=== PATIENT | male | born 1965 | race Caucasian/White ===

== ENCOUNTER 2023-10-18 09:53 | Emergency (ER) | payer OTHER, SELFPAY ==
[2023-10-18 09:53] VITALS: BMI 26.4
[2023-10-18 09:57] VITALS: BP 154/84
[2023-10-18 10:04] VITALS: BP 141/93
[2023-10-18 10:43] LABS: % Basophils 0.8 % (0-2); % Eosinophils 1.9 % (0-6); % Immature Granulocytes 0.3 % (0-0.5); % Lymphocytes 34.1 % (20.5-51.1); % Monocytes 7.7 % (1.7-9.3); % Neutrophils 55.2 % (42.2-75.2); Absolute Basophils 0.1 10^3/uL (0-0.2); Absolute Eosinophils 0.1 10^3/uL (0-0.7); Absolute Lymphocytes 2.5 10^3/uL (1.2-3.4); Absolute Monocytes 0.6 10^3/uL (0.1-0.6); Absolute Neutrophils 4.1 10^3/uL (1.4-6.5); Hematocrit 46.2 % (39.0-52.0); Hemoglobin 16.1 g/dL (13.0-18.0); Mean Corp Hgb Conc. 34.8 g/dL (33.0-37.0); Mean Corpuscular Hgb 31.9 pg (27.0-31.0); Mean Corpuscular Volume 91.5 fL (80.0-94.0); Nucleated Red Blood Cells % 0 % (-); Platelet Count 268 10^3/uL (130-400); Red Blood Cell Count 5.05 10^6/uL (4.70-6.10); Red Cell Dist. Width 12.6 % (11.5-14.5); White Blood Cell Count 7.4 10^3/uL (4.8-10.8)
--- NOTE | 2023-10-18 10:50 | ED.GENMED ---
History of Present Illness
General
Chief Complaint: Abdominal Pain
Source: patient
Exam Limitations: none
Time Seen by Provider: 10/18/23 10:08
Nursing documentation reviewed up to this point in time: agreed with
Travel History
Have you had any contact with someone who has COVID-19?: No
Do you have any symptoms of coronavirus? Fever > 100 degrees, chills, cough, shortness of breath, sore throat, loss of taste or smell, muscle aches, or headache?: No
History of Present Illness
History of Present Illness:
58 yo male w no sig PMHX states he's had left sided abdominal pain past 2 weeks, slowly worsening. Has had 1-2 watery non bloody diarrheal stools daily. Last diarrhea yesterday a.m. Denies fever, n/v but has no appetite. Pain is gassy and sharp at
times, worse laying down, better standing, had trouble sleeping last night due to pain. Diarrhea not necessarily preceded by pain, has taken nothing for pain.
Past History
Past History
ED Past Medical History: None
ED Past Surgical History: None
Social History
Tobacco: Non-smoker
Alcohol: None
Personal:
Living: with family
Employment: Employed
Review of Systems
Review of Systems
Allergies reviewed?: Yes
All Other Systems: ROS reviewed and negative except as documented in HPI and ROS
Constitutional: Denies fever or chills
Respiratory: Denies trouble breathing
Cardiac: Denies chest pain
ABD/GI: Reports abdominal pain, diarrhea and anorexia; Denies nausea, vomiting, constipated, bloody stools or black stools
: Denies dysuria or difficulty voiding
Musculoskeletal: Reports no symptoms
Skin: Reports no symptoms
Neurological: Reports no symptoms
Phy Exam
Physical Exam
Physical Exam:
GENERAL: No acute distress. A&Ox3.
CONSTITUTIONAL: Afebrile.
EYES: clear, conjunctivae normal
ENMT: moist mucus membranes, Pharynx nl
RESPIRATORY: Regular respirations, nonlabored, lungs clear.
CARDIOVASCULAR: Regular rate and rhythm, no murmurs, no rubs.
GI: Soft, tender mid to left abdomen, normal BS
MUSCULOSKELETAL: Moves with ease. Well perfused.
SKIN: Warm, dry, pink
PSYCH: Normal mood and affect. Well kept, interactive and appropriate
NEUROLOGIC: Awake, alert and oriented. No focal neurological deficits
Course
Orders/Labs/Results
Orders:
Orders
10/18/23 10:32
Complete Blood Count/With Diff Urgent
Comprehensive Metabolic Panel Urgent
Lipase Urgent
10/18/23 10:50
0.9% Sodium Chloride 1000 ml [Nss] 1,000 ml IV BOLUS
10/18/23 10:51
CT Abd/pel W Iv And Oral Contr Urgent
Comment:
Reason For Exam: left abd pain, diarrhea
Iohexol [Omnipaque] See Protocol PO NOW STA
10/18/23 10:53
Ketorolac [Toradol] 15 mg IV NOW STA
10/18/23 14:[address] Non Medication Order As Directed
Physician Order: Post void bladder scan
10/18/23 14:48
Urinalysis Reflex To Culture Urgent
10/18/23 15:24
Lidocaine 2% [Lidocaine Uro-Jet 2%] 1 syringe .ROUTE .[facility]
10/18/23 15:30
Lidocaine 2% [Lidocaine Uro-Jet 2%] 1 syringe TOPICAL NOW STA
10/18/23 16:37
CefTRIAXone [Rocephin] 1,000 mg IV NOW STA
10/18/23 17:27
Phenazopyridine HCl [Pyridium] 100 mg PO NOW STA
Abnormal Lab Results
10/18/23
10:32
MCH 31.9 H pg
(27.0-31.0)
Total Bilirubin 2.3 H mg/dl
(0.2-1.3)
10/18/23 10:32
10/18/23 10:32
Vital Signs
Initial and Last Documented VS:
Initial Vital Signs
Temp Pulse Resp Pulse Ox
97.8 F 56 16 98
10/18/23 09:55 10/18/23 09:55 10/18/23 09:55 10/18/23 09:55
Last Documented Vital Signs
Temp Pulse Resp BP Pulse Ox
97.5 F 56 16 139/84 96
10/18/23 10:35 10/18/23 15:55 10/18/23 10:30 10/18/23 15:55 10/18/23 15:55
MDM/Problems Addressed
Differential Diagnosis Includes:
Viral enteritis, colitis, diverticulitis
MDM/Problems Addressed:
58 yo male w no sig PMHX states he's had left sided abdominal pain past 2 weeks, slowly worsening. Has had 1-2 watery non bloody diarrheal stools daily. Last diarrhea yesterday a.m. Denies fever, n/v but has no appetite. Pain is gassy and sharp at
times, worse laying down, better standing, had trouble sleeping last night due to pain. Diarrhea not necessarily preceded by pain, has taken nothing for pain.
Afebrile, NAD
10/18/2023 1202 PM
CBC normal
CMP: Bilirubin 2.3 otherwise normal
Lipase normal
10/18/2023 1423 PM
CAT scan abdomen pelvis radiology report read: IMPRESSION:
1. � Severe right hydronephrosis and moderate to severe left hydronephrosis as above. Dilation of the urinary bladder with mural irregularity probably related to trabeculation. Suspect hydronephrosis secondary to bladder outlet obstruction or
neurogenic bladder. There is however also a 4 mm calculus within the dilated right ureter which may be partially obstructive. There are postoperative changes of the prostate gland.
2. � Incidental small probable hepatic hemangioma as above.
3. � Cholelithiasis.
4. � Renal cysts and probable cysts as above.
5. � Small bilateral fat-containing inguinal hernias.
Patient voided and then had a postvoid bladder scan which showed over [address] Ralph catheter after two RNs attempted, including with Coude catheter
Consulted urology Dr. Nye who will be in to place catheter. He requests Rocephin for the manipulation.
He plans to insert catheter and discharge pt on antibiotics.
10/18/2023 1709 PM
Await[address] Urologist
Dr. Nye in and inserted Ralph catheter
Rx for Cefdinir sent to pt pharmacy
Rx for Flomax sent for the ureteral stone.
*Critical Care Note
Total Time (30-74mins, 75-104mins- exclusive of procedures): Not Applicable
ED Attending Note
-
Portions of this chart may have been created with voice recognition software.� Occasional wrong word or��sound alike� substitutions may have occurred due to the inherent limitations of voice recognition software.
Discharge Plan
Departure
Patient Disposition: Home (Routine Discharge)
Date of Disposition: 10/18/23
Time of Disposition: 17:24
Patient with high blood pressure during this ER visit?: No
Condition: Fair
Discharge Problem:
Calculus of distal right ureter, Acute retention of urine, Hydronephrosis
Instructions: Kidney Stones (DC), How to Care for Your Ralph Catheter, Male, Urinary Retention (DC)
Prescriptions:
New
cefdinir 300 mg capsule
300 mg PO BID 5 Days Qty: 10 0RF
tamsulosin [Flomax] 0.4 mg capsule
0.4 mg PO DAILY Qty: 5 0RF
phenazopyridine [Pyridium] 100 mg tablet
100 mg PO TID PRN (Reason: urethral pain) Qty: 7 0RF
Referrals:
Lukasz Contreras MD [Active] - Keep scheduled appt
Courtney Amin CRNP [Family Provider] -
Activity Restrictions/Additional Instructions:
As we discussed, I sent a prescription to your pharmacy for the antibiotic cefdinir to take twice a day for 5 days, Flomax to help you pass the ureteral stone and Pyridium to take as needed for burning in your urethra.
Tylenol or ibuprofen may help with the pain also.
As discussed with Dr. Nye, Dr. Contreras will call you tomorrow to arrange for follow-up appointment
Interventions
Interventions:
*Risk Screen - Suicide Last Done: 10/18/23 10:10
*General Assessment Last Done: 10/18/23 10:10
*Neglect/Abuse Screening Last Done: 10/18/23 10:10
*ED COVID-19 Vaccine History Last Done: 10/18/23 09:55
EG-Fxskzo-Bgbjhuromy Assessment Last Done: 10/18/23 10:08
[2023-10-18 10:58] LABS: ALT (SGPT) 44 U/L (0-50); AST (SGOT) 35 U/L (17-59); Albumin 4.5 g/dl (3.5-5.0); Alkaline Phosphatase 80 U/L (38-126); Blood Urea Nitrogen 10 mg/dl (9-20); Calcium 9.4 mg/dl (8.4-10.2); Carbon Dioxide 26 mmol/L (22-30); Chloride 106 mmol/L (98-107); Estimated Creatinine Clearance 101 ml/min; Glucose 97 mg/dl (70-99); Lipase 76 U/L (23-300); Potassium 4.2 mmol/L (3.5-5.1); Sodium 137 mmol/L (135-145); Total Bilirubin 2.3 mg/dl (0.2-1.3); Total Protein 7.5 g/dl (6.3-8.2); eGFR > 60.00
[2023-10-18] MEDS: OMNIPAQUE 50 ML PO (11:05)
[2023-10-18] MEDS: TORADOL 15 MG IV (11:06)
[2023-10-18] MEDS: NSS 1000 IV (11:09)
[2023-10-18 13:41] VITALS: BP 139/90
[2023-10-18] MEDS: LIDOCAINE URO-JET 2% 1 SYRINGE TOPICAL (15:31)
[2023-10-18 15:55] VITALS: BP 139/84
[2023-10-18] MEDS: ROCEPHIN 1000 MG IV (17:43)
[2023-10-18] MEDS: Pyridium 100 MG PO (17:43)
--- NOTE | 2023-10-18 17:48 | W.PN.URO.CBU ---
Today's Communication / Plan
-
homw with charlton on flomax and abs
Assessment / Plan
-
placed charlton 2 lites draine will statflomax pt to follow up dhu and v]call if fevr chills aware of ston and willcall if too much colic
Diagnosis
-
Date of Service: October 18, 2023
-
Patient Diagnosis:
urinary retention wirh 2 lites in bladdr left greater than rt hydro an sdespite lft colic has rt 4m distae=lureteral stone
Post Op Day:
Subjective
-
left colic urinary frequency
Objective
-
Vital Signs
Temp Pulse Resp BP Pulse Ox
97.5 F 56 16 139/84 96
10/18/23 10:35 10/18/23 15:55 10/18/23 10:30 10/18/23 15:55 10/18/23 15:55
Intake and Output
10/17/23 10/18/23 10/19/23
06:59 06:59 06:59
Output Total 1100 / 1100
Balance -1100 / -1100
Output:
Urine, Charlton 1100 / 1100
Laboratory Results
10/18/23 10:32
10/18/23 10:32
Review of Systems
-
: Frequency, Flank Pain and Urgency
Physical Exam
-
General - well developed, well nourished, no acute distress
Chest - clear bilaterally
Abdomen - soft, non-tender, positive bowel sounds, no CVAT, no incisional pain or distention
Genitalia - normal
Rectal - normal
Skin - warm & dry with no rash
Neuro - AOx3, no motor deficits
Extremities - no clubbing, no cyanosis, no edema
Incision - clean, dry
Dressing - clean, dry, intact
Counseling
-
yee with charlton
Care Review
Data Reviewed
Discussed with: Nursing and Other (attending urologist)
CT Scan: Image Pers Reviewed
[2023-10-18 17:54] VITALS: BP 130/90
[2023-10-18 18:07] LABS: Urine Albumin Negative (Neg - Trace); Urine Bilirubin Negative (Negative); Urine Character Clear (Clear); Urine Color Yellow; Urine Glucose Negative (Negative); Urine Ketone Trace (Negative); Urine Leukocyte Negative (Negative); Urine Nitrite Negative (Negative); Urine Occult Blood Negative (Negative); Urine Urobilinogen Negative (Neg - 1+); Urine pH 6.5 (5.0-9.0)
== END 2023-10-18 18:09 | disposition home or self-care (01) ==
LOC: EMR 09:53
PROVIDERS: Registered Nurse; EMERGENCY PHYSICIAN Emergency Medicine; FAMILY PHYSICIAN Nurse Practitioner; OTHER PHYSICIAN Specialist
DX: N13.2 Hydronephrosis with renal and ureteral calculous obstruction (principal)
CPT/HCPCS: 99285; 96374; 96375; 96361; 51702; 74177; 80053; 81003; 83690; 85025; Q9967

== ENCOUNTER 2023-11-12 16:31 | Inpatient (IN) | payer OTHER, SELFPAY ==
--- NOTE | 2023-11-10 08:54 | CM ---
Patient is scheduled for a TURP on 11/12/23. Spoke with patient prior to surgery via telephone to complete case management assessment and assess for discharge planning needs. Patient reports that he lives with his and two children in a two story
home. There are three steps to enter and a flight of steps to the second floor. He currently functions independently. He currently has a charlton which he is managing independently. He has no DME and has never had VN services. He has a prescription
plan and uses [facility] in [place].
PCP is Courtney Amin
Discussed discharge plans. Patient plans to return home at discharge. He states that he will have support from his when he goes home. He has no discharge planning concerns at this time. Discussed possible need for VN services. Patient does not
feel he will need VN services.
[2023-11-12] VITALS (12 sets, daily range): BP systolic 101–128; BP diastolic 62–84; BMI 25.9; BMI 25.7
[2023-11-12 14:08] LABS: INR 0.98; PT 12.8 Sec (11.4-14.6)
[2023-11-12 14:09] LABS: APTT 26.3 Sec (23.4-35.0)
[2023-11-12] MEDS: NORMOSOL-R 1000 IV (14:12)
--- NOTE | 2023-11-12 16:16 | W.IMMPOSTOP ---
Surgical Immed Post Op Note
-
Primary Surgeon: Diane
Pre-op Diagnosis: BPH w/ ALVARENGA, urinary retention, s/p UroLift (failed)
Post-op Diagnosis: Same
Procedure Performed: bipolar (loop/button) TURP
Anesthesia Type: LMA
Specimen / Cultures: None/None
Estimated Blood Loss: Negligible
Drains: 22Fr 3-way Ralph catheter
Complications: None
Operative Findings: complete resection/vaporization if obstructing prostatic adenoma down to capsule w/ excellent hemostasis in no flow, low pressure state on final cysto.
[2023-11-12] MEDS: SUBLIMAZE 50 MCG IV (16:24)
[2023-11-12] MEDS: DETROL LA 4 MG PO (16:45)
[2023-11-12] MEDS: NSS 1000 IV (16:52)
[2023-11-12] MEDS: SUBLIMAZE 25 MCG IV ×2 (16:54→17:08)
--- NOTE | 2023-11-12 18:22 | PTCARENOTE ---
Patient admitted from [facility] for a button and loop turp secondary to bph.The patient reports his pain at a 3-4 out of 10.Vital signs are stable.The urine is a pale yellow with continuous bladder irrigation.The patient is in his bed with the call luna
in reach.
[2023-11-12] MEDS: ROXICODONE 5 MG PO (19:43)
[2023-11-13 03:00] VITALS: BP 108/63
[2023-11-13] MEDS: NSS 1000 IV (05:23)
[2023-11-13] MEDS: ROXICODONE 5 MG PO (06:25)
[2023-11-13 07:11] VITALS: BP 126/67
[2023-11-13 07:11] LABS: % Basophils 0.1 % (0-2); % Immature Granulocytes 0.6 % (0-0.5); % Lymphocytes 14.2 % (20.5-51.1); % Monocytes 4.5 % (1.7-9.3); % Neutrophils 80.6 % (42.2-75.2); Absolute Immature Granulocytes 0.1 10^3/uL (0-0.05); Absolute Lymphocytes 1.3 10^3/uL (1.2-3.4); Absolute Monocytes 0.4 10^3/uL (0.1-0.6); Absolute Neutrophils 7.6 10^3/uL (1.4-6.5); Hematocrit 42.5 % (39.0-52.0); Hemoglobin 14.9 g/dL (13.0-18.0); Mean Corp Hgb Conc. 35.1 g/dL (33.0-37.0); Mean Corpuscular Hgb 31.4 pg (27.0-31.0); Mean Corpuscular Volume 89.7 fL (80.0-94.0); Mean Platelet Volume 10.2 fL (7.4-10.4); Nucleated Red Blood Cells % 0 % (-); Platelet Count 252 10^3/uL (130-400); Red Blood Cell Count 4.74 10^6/uL (4.70-6.10); Red Cell Dist. Width 12.2 % (11.5-14.5); White Blood Cell Count 9.4 10^3/uL (4.8-10.8)
[2023-11-13 07:37] LABS: Blood Urea Nitrogen 13 mg/dl (9-20); Calcium 9.2 mg/dl (8.4-10.2); Carbon Dioxide 24 mmol/L (22-30); Chloride 102 mmol/L (98-107); Estimated Creatinine Clearance > 125 ml/min; Glucose 120 mg/dl (70-99); Potassium 4.4 mmol/L (3.5-5.1); Sodium 134 mmol/L (135-145); eGFR > 60.00
[2023-11-13] MEDS: Pyridium 200 MG PO (09:21)
--- NOTE | 2023-11-13 10:10 | CM ---
Plan continues to be home no needs.
--- NOTE | 2023-11-13 10:15 | W.PN.UPDATE ---
Update Note
Progress Note Update
Stable 1 day s/p TURP
Labs good
Ralph out at 0950 today
Up and out of bed
Tolerating diet
---
Voiding trial this AM
Home today
[2023-11-13 11:27] VITALS: BP 117/71
== END 2023-11-13 13:40 | disposition home or self-care (01) | DRG 713 ==
LOC: 2 SOUTH 16:31
PROVIDERS: ADMITTING PHYSICIAN Surgery
PROC: 0VB08ZZ Excision of Prostate, Via Natural or Artificial Opening Endoscopic (ICD-10-PCS; 2023-11-12)
DX: N40.1 Benign prostatic hyperplasia with lower urinary tract symptoms (principal); N13.8 Other obstructive and reflux uropathy
CPT/HCPCS: 80048; 85025; 85610; 85730; 93005

== ENCOUNTER → 2025-01-24 13:12 | Outpatient (REF) | payer OTHER, SELFPAY | LOC: RAD 13:12 | PROVIDERS: ATTENDING PHYSICIAN Nurse Practitioner Family | DX: R94.5 Abnormal results of liver function studies (principal) | CPT/HCPCS: 76700 ==

== ENCOUNTER 2025-04-05 06:26 | Day surgery (SDC) | payer OTHER, SELFPAY ==
[2025-03-26 14:04] VITALS: BMI 26.0
[2025-04-05] VITALS (7 sets, daily range): BP systolic 116–138; BP diastolic 75–88; BMI 26.0
[2025-04-05] MEDS: NORMOSOL-R/PLASMALYTE-A 1000 IV (10:55)
[2025-04-05] MEDS: TYLENOL 1000 MG PO (11:06)
--- NOTE | 2025-04-05 13:03 | W.SUR.PREOP ---
Pre-Operative Surgical Note
-
I have examined this patient prior to the performance of the scheduled procedure.
The patient's condition is unchanged from the time of the current History and
Physical and the patient is able to undergo the scheduled procedure.
--- NOTE | 2025-04-05 13:03 | HP.FOC2 ---
Focused History & Physical
Chief Complaint
HPI:
Chief Complaint: Left upper quadrant pain
HPI / Indication for Planned Procedure: This is a 59-year-old male who presents with postprandial left upper quadrant pain and significant cholelithiasis here for laparoscopic cholecystectomy.
Relevant Past Medical History: Negative
Relevant Social History: Negative
Relevant Family History: Negative
Relevant Past Surgical History: Negative
Review of Systems
Review of Pertinent Systems: All Systems Negative
Medication
See Medication form for detailed medications: Yes
Medication List (including Herbals & OTC):
No Meds [No Current Medications] 03/27/25
Medications Reviewed: Yes
Allergies and Reactions
Patient has Allergies: No
Noted Allergies and Reactions:
Allergy/AdvReac Type Severity Reaction Status Date / Time
No Known Allergies Allergy Verified 04/05/25 11:04
Pertinent Physical Exam
All Other Systems: Negative
Head/Neck: Normal
Diagnosis / Assessment
This is a 59-year-old male who presents with postprandial left upper quadrant pain and significant cholelithiasis here for laparoscopic cholecystectomy.
Plan / Procedure
laparoscopic cholecystectomy.
Anesthesia/Sedation to be done by Anesthesia Provider: Yes
--- NOTE | 2025-04-05 14:47 | W.IMMPOSTOP ---
Surgical Immed Post Op Note
-
Primary Surgeon: Guillermo Lara MD
Assisting Surgeon: None
Pre-op Diagnosis: Biliary colic
Post-op Diagnosis: Same
Procedure Performed: Laparoscopic cholecystectomy with cholangiogram
Anesthesia Type: General
Specimen / Cultures: Gallbladder and contents
Estimated Blood Loss: 7 cc
Complications: None
Operative Findings: Fatty gallbladder with some mild adhesions all lysed with electrocautery. Critical view of safety obtained prior to a cholangiogram which demonstrated no filling defects.
--- NOTE | 2025-04-05 14:49 | OR.RPT ---
Operative Report
Operative Report
Patient Name: Abhi Alexandra
: 1965
Date of Operation: 04/05/2025
Preoperative Diagnosis: Biliary colic
Postoperative Diagnosis: Same
Procedure(s):
Laparoscopic Cholecystectomy with Cholangiogram
Surgeon(s):
Dr. Lara
Assistant Passenger Locomotive Engineer(s):
LILIAN Tan
Anesthesia: General
Estimated Blood Loss: 7 cc
Urine Output: None
Drains/Lines/Implants: None
Specimens:
1. Gallbladder and contents
HPI/Surgical Indications:
This is a 59-year-old male who present to my office with postprandial left upper quadrant pain. Exam, labs and imaging are consistent with biliary colic. Risks/Benefits/Alternatives were discussed at length, and the patient agreed to proceed with
surgery.
Operative Findings: Fatty gallbladder with some mild adhesions all lysed with electrocautery. Critical view of safety obtained prior to a cholangiogram which demonstrated no filling defects and normal biliary anatomy.
Procedure Description:
The patient was brought to the Operating Room and placed in the supine position with one arm tucked. Following uneventful induction of general endotracheal anesthesia, an orogastric tube was placed. The abdomen was prepped and draped in the usual
sterile fashion. A timeout was performed confirming the procedure, consent, and that IV antibiotics were infused and sequential compression devices were confirmed to be on. The abdomen was entered using a left subcostal Veress technique which
required a single pass followed by a 5 mm right upper quadrant Optiview trocar. Pneumoperitoneum to 15 mmHg pressure was obtained without difficulty and we confirmed that no injury had occurred during our entry. The patient was positioned in
reverse Trendelenberg and rotated with the right side up slightly. Two 5 mm trocars were then placed along the right subcostal margin, followed by a 12 mm port in the epigastrium. The gallbladder appeared encased in fat and there were mild
adhesions to the anterior surface which were lysed. A locking grasping forceps was placed on the fundus of the gallbladder where it was then retracted cephalad and to the right. Using appropriate grasping instruments, the peritoneum overlying the
triangle of Calot was incised and extended superiorly on both the anterior and posterior gallbladder connolly. The infundibulum was dissected off the cystic plate. The cystic triangle was dissected until a critical view of safety was achieved. The
cystic artery was medialized, dissected and controlled with 2 proximal clips and 1 distal. The cystic duct/gallbladder junction in turn was identified, dissected circumferentially and a clip was placed. A ductotomy was made and a cholangiocatheter
on an Carrion clamp was inserted into the cystic duct. A C-arm was draped and brought into the field. An intra-operative cholangiogram was performed and was noted to have:
No filling defects in the biliary tree
No significant biliary dilation
Brisk flow of contrast into the duodenum
Normal biliary anatomy
The catheter was then removed and the cystic duct was controlled with a clip and a 0 PDS Endoloop. After ensuring both the artery and duct were divided, the gallbladder was freed from the liver using electrocautery. There was some spillage of
bile, but no spillage of stones. The gallbladder bed was inspected and excellent hemostasis was obtained. The gallbladder was extracted through the 12 mm trocar site using an endocatch bag. The abdomen was again irrigated and excellent hemostasis
was assured. All remaining trocars were then removed and the pneumoperitoneum was evacuated. The 12 mm trocar site was closed using 0 PDS suture. All trocar sites were closed at the skin level using 4-0 Monocryl followed by Dermabond. Overall,
the patient tolerated the procedure well and was taken to the Recovery Room postoperatively in stable condition.
I was the attending physician and performed the procedure with assistance of the PA above. The assistance of LILIAN Tan was required due to the complexity of the procedure. During the procedure Janki assisted with port placement, tissue
retraction and countertraction, and closure of the wound. I was present for all portions of the case, excluding skin closure.
Guillermo Lara MD
[2025-04-05] MEDS: DILAUDID 0.5 MG IV ×2 (15:15→15:26)
== END 2025-04-05 16:25 | disposition home or self-care (01) ==
LOC: SDS 06:26
PROVIDERS: ATTENDING PHYSICIAN Surgery; FAMILY PHYSICIAN Nurse Practitioner
DX: K80.20 Calculus of gallbladder without cholecystitis without obstruction (principal); K80.70 Calculus of gallbladder and bile duct without cholecystitis without obstruction
CPT/HCPCS: 47563; 36415; 74300; 76000; 88304; 93005; A4300